=== PATIENT | female | born 1960 ===

== ENCOUNTER 2022-12-13 10:55 | Day surgery (SDC) | payer BC ==
[~2022-12-13] VITALS: Ht 160 cm; Wt 116.7 kg
[2022-12-13 11:43] VITALS: BP 132/86; PULSE 67; TEMP 97.6
[2022-12-13] MEDS ORDERED: DESYREL 100MG100 MG PO (11:47)
[2022-12-13] MEDS ORDERED: LUVOX100 MG PO (11:48)
[2022-12-13 13:30] VITALS: BP 145/75; PULSE 64; TEMP 97.6
[2022-12-13 13:45] VITALS: BP 121/74; PULSE 68
[2022-12-13 13:59] VITALS: BP 128/80; PULSE 64
--- NOTE | 2022-12-13 14:00 | NUR ---
1330 RETURNS TO ROOM 8 PER CART. AWAKE, ALERT. DENIES NAUSEA OR ABD PAIN. AMBULATES TO RECLINER. PATIENT HAD NO ANESTHESIA FOR PROCEDURE CALL LIGHT AT SIDE. PARTNER IN ROOM. 1340 DR. POSADA HERE TO VISIT WITH PATIENT. 1350 TOLERATES PO JUICE WITHOUT NAUSEA 1355 DISCHARGE INSTRUCTIONS REVIEWED. PATIENT VERBALIZES UNDERSTANDING. COPY PROVIDED IN DISCHARGE FOLDER
== END 2022-12-13 14:00 | disposition home or self-care (01) ==
LOC: SDCO 10:55
DX: Z12.11 Encounter for screening for malignant neoplasm of colon (principal); D12.3 Benign neoplasm of transverse colon; K62.1 Rectal polyp; K57.30 Diverticulosis of large intestine without perforation or abscess without bleeding; K62.89 Other specified diseases of anus and rectum; K64.4 Residual hemorrhoidal skin tags; Z80.0 Family history of malignant neoplasm of digestive organs
CPT/HCPCS: 32342